=== PATIENT | female | born 1985 | race Caucasian/White ===

== ENCOUNTER 2017-11-09 08:01 | Day surgery (SDC) | payer OTHER ==
[2017-11-09 08:21] LABS: Urine Appearance CLEAR; Urine Bilirubin NEGATIVE (NEG); Urine Blood TRACE (NEG); Urine Color YELLOW; Urine Glucose NEGATIVE (NEG); Urine Protein NEGATIVE (NEG); Urine Urobilinogen 0.2 mg/dL (0.2-1.0)
[2017-11-09 08:26] LABS: Urine Microscopic Reflex ORDER UMIC
[2017-11-09 08:28] LABS: Absolute Lymphocytes (CBC) 2.1 K/uL (0.7-4.9); Absolute Monocytes 0.7 K/uL (0.1-1.3); Absolute Neutrophil 4.4 K/uL (1.8-8.0); Basophils % 0.4 % (0-1.3); Eosinophils % 1.8 % (0-4.4); Lymphocytes % 28.9 % (15.3-44.8); MCH 26.4 pg (27.0-35.0); MCV 78.7 fL (80-100); MPV 8.5 fL (7.6-11.3); RBC Red Blood Cell Count 5.09 M/uL (3.86-4.86)
[2017-11-09 08:29] LABS: Urine Bacteria <20 /HPF (<20); Urine Culture Reflex Order NOT NEEDED; Urine RBC <5 /HPF (NONE SEEN)
[2017-11-09] MEDS ORDERED: CIPROFLOXACIN 400mg IV 400 MG/200 ML BAG IV ONE (08:30)
[2017-11-09] MEDS ORDERED: BUPIVACAINE 0.5% PF 10 ML VIAL ONE (08:41)
[2017-11-09] MEDS: Ringers Lactate 1,000 ML IV ONE ×2 (08:47→09:26)
[2017-11-09] MEDS ORDERED: MIDAZOLAM HCL 2 MG/2 ML INJ ONE (09:25)
[2017-11-09] MEDS ORDERED: PROPOFOL 200 MG/20 ML VIAL IV ONE (09:25)
[2017-11-09] MEDS ORDERED: LIDOCAINE 2% MPF 5 ML VIAL ONE (09:25)
[2017-11-09] MEDS ORDERED: FENTANYL CITR 100 MCG/2 ML ONE (09:25)
[2017-11-09] MEDS ORDERED: ONDANSETRON HCL 40 MG/20 ML VIAL ONE (09:26)
--- NOTE | 2017-11-09 09:57 | P.BOP ---
Preoperative diagnosis: left upper back infected subcutaneous mass (5.5x5cm) with abscess Postoperative diagnosis: same Primary procedure: Excision left upper back infected subcutaneous mass with abscess drainage Secondary procedure: 5.5 x 5 cm Estimated blood loss: <5cc Specimen: infected mass, abscess pus culture Findings: as above Anesthesia: General Complications: None Transferred to: Recovery Room Condition: Good
[2017-11-09] MEDS ORDERED: CODEINE 30MG/APAP 300MG TAB ONE (11:33)
--- NOTE | 2017-11-09 20:59 | OP ---
Date of Procedure: 11/09/2017 Surgeon: Olvin Ware MD Preoperative Diagnosis: Left upper back infected subcutaneous mass 5.5 x 5 cm with a subcutaneous ab scess. Postoperative Diagnosis: Left upper back infected subcutaneous mass 5.5 x 5 cm with a subcutaneous a bscess. Procedure: Excision of left upper back infected subcutaneous mass with abscess drainage 5.5 x 5 cm. Specimen: Infected mass with culture from the pus from an abscess. Findings: The patient has an infected subcutaneous mass and then underlying abscess is present. The mass and the abscess were eliminated. Anesthesia: General plus local. Indications: This is the case of a female who comes to us with a tender enlarged mass in the left up per back with redness and increased temperature. The patient diagnosed with an infected mass with ab scess. Fully explained the benefits, alternatives, and risks of an abscess drainage. At the same ti me, the mass will be removed. Benefits, alternatives, and risks of excision and drainage fully expla ined to the patient, which include but are not limited to infection, bleeding, damage to adjacent str uctures, anesthesia complication, recurrence, CT, and even . She also understands this may not relieve her symptoms. She might need more than one surgical intervention. She also understands the importance of dressing changes. She was explained the options she has is a home health agencies vers us a family, and she is deciding on that. Description Of Procedure: The patient was brought to the operating room, placed in supine position. Anesthesia was done without complication. The patient was placed in lateral decubitus position. Th is mass was previously marked by me and the patient in the holding room. We proceeded to prep and dr ebe the left upper back in usual sterile fashion. A wedge incision in the skin was made to include p art of the skin. This led us into a mass that was carefully removed from the subcutaneous tissue. I t goes deep near the muscle, and then deep, just superficial to the muscle there is an abscess presen t with pus that was cultured. The mass was excised. Loculations were explored and opened. The pus was removed. The area was profusely irrigated. Hemostasis was obtained. Local anesthesia was appli ed, and the area was packed with wet-to-dry dressing. The patient tolerated the procedure well. The patient was sent to recovery room in stable condition. KEVIN/PENNY Voice ID: [id number] Report ID: [id number]
--- NOTE | 2017-11-09 21:01 | DS ---
Diagnosis: Infected deep left subcutaneous mass with abscess. Procedure: Excisional biopsy of left upper back infected subcutaneous mass with abscess drainage. Disposition: Home. Activity: As tolerated. No heavy lifting. Followup: Follow up in my office in 1 week. Call for appointment on [phone]. Wet-to-dry dressing changes. Normal saline daily. The patient has already taken doxycycline at home. KEVIN/PENNY Voice ID: [id number] Report ID: [id number]
== END 2017-11-09 12:40 | disposition home or self-care (01) ==
LOC: OR 08:01
PROVIDERS: ATTEND Surgery
PROC: 0JB70ZZ Excision of Back Subcutaneous Tissue and Fascia, Open Approach (ICD-10-PCS; 2017-11-09)
PROC: 0J970ZZ Drainage of Back Subcutaneous Tissue and Fascia, Open Approach (ICD-10-PCS; principal; 2017-11-09 09:45)
DX: L72.0 Epidermal cyst (principal); L02.212 Cutaneous abscess of back [any part, except buttock and flank]; Z83.3 Family history of diabetes mellitus; Z82.49 Family history of ischemic heart disease and other diseases of the circulatory system
CPT/HCPCS: 36415; 80048; 81003; 81015; 81025; 85025; 87070; 87075; 87205; 88304; 88305; J0744; J2250; J2405; J3010